=== PATIENT | male | born 1960 | race Caucasian/White ===

== ENCOUNTER 2018-11-04 03:42 | Inpatient (IN) | payer MEDICAID, OTHER ==
[~2018-11-04] VITALS: Ht 185.4 cm; Wt 81.5 kg
[2018-11-04 05:16] LABS: BASOPHILS % (AUTO) 0.9 % (0.0-2.0); EOSINOPHILS % (AUTO) 0.4 % (1.0-6.0); HEMOGLOBIN 16.3 g/dL (13.5-17.5); LYMPHOCYTES # (AUTO) 1.8 K/uL (1.0-4.8); LYMPHOCYTES % (AUTO) 13.4 % (22.0-44.0); MEAN CORPUSCULAR VOLUME 88 fL (80-100); MONOCYTES # (AUTO) 1.1 K/uL (0.1-1.0); MONOCYTES % (AUTO) 8.5 % (2.0-9.0); NEUTROPHILS # (AUTO) 10.3 K/uL (1.8-7.7); NEUTROPHILS % (AUTO) 76.8 % (40.0-70.0); PLATELET COUNT (AUTO) 361 K/uL (150-450); RED BLOOD CELL COUNT(AUTO) 5.44 MIL/uL (4.50-5.90); RED CELL DISTRIBUTION WIDTH 13.8 % (11.5-14.5)
[2018-11-04 05:26] LABS: AMPHET/METH SCREEN,URINE POSITIVE (NEGATIVE); BARBITURATE SCREEN, URINE NEGATIVE (NEGATIVE); BENZODIAZEPINES SCREEN,URINE NEGATIVE (NEGATIVE); CANNABINOID SCREEN,URINE NEGATIVE (NEGATIVE); COCAINE SCREEN,URINE NEGATIVE (NEGATIVE); METHADONE SCREEN, URINE NEGATIVE (NEGATIVE); OPIATE SCREEN,URINE NEGATIVE (NEGATIVE)
[2018-11-04 05:29] LABS: PHENCYCLIDINE SCREEN,URINE NEGATIVE (NEGATIVE)
[2018-11-04 05:36] LABS: ANION GAP 13 mmol/L (8-16); CALCIUM, TOTAL 9.4 mg/dL (8.8-10.5); CARBON DIOXIDE 24 mmol/L (22-29); CHLORIDE 103 mmol/L (98-107); CREATININE 1.29 mg/dL (0.60-1.30); GLOMERULAR FILTR. RATE CALC 57 mL/min (>60); GLUCOSE,RANDOM 153 mg/dL (70-110); POTASSIUM 3.8 mmol/L (3.5-5.1); SODIUM SERUM 140 mmol/L (136-145); UREA NITROGEN, BLOOD 32 mg/dL (7-18)
[2018-11-04 05:41] LABS: ALANINE AMINOTRANSFERASE 107 U/L (12-78); ALBUMIN 4.2 g/dL (3.4-5.0); ALKALINE PHOSPHATASE 106 U/L (46-116); ASPARTATE AMINOTRANSFERASE 185 U/L (15-37); BILIRUBIN,TOTAL 1.4 mg/dL (0.1-1.0); TOTAL PROTEIN, SERUM 8.5 g/dL (6.4-8.2)
[2018-11-04] MEDS ORDERED: LORazepam 2 MG/ML VIAL IM ONE (06:00)
[2018-11-04] MEDS ORDERED: HALOPERIDOL LACTATE 5 MG/ML VIAL IM ONE (06:00)
[2018-11-04] MEDS ORDERED: DiphenhydrAMINE HCL 50 MG/ML VIAL IM ONE (06:00)
[2018-11-04] MEDS ORDERED: ZOLPIDEM TARTRATE 10 MG TABLET PO PRN (13:45)
[2018-11-04 19:40] VITALS: BP 117/75
[2018-11-04] MEDS: LORazepam 2 MG TABLET PO PRN (20:35)
[2018-11-04] MEDS: RisperiDONE 1 MG TABLET PO SCH (20:35)
[2018-11-05 00:45] VITALS: BP 110/77
[2018-11-05] MEDS ORDERED: ALBUTEROL SULFATE HFA 90 MCG/PUFF 8 GM INHALER IH PRN (07:00)
[2018-11-05] MEDS ORDERED: ONDANSETRON HCL 4 MG TABLET PO PRN (07:00)
[2018-11-05] MEDS ORDERED: MAG HYDROX/AL HYDROX/SIMETH ES 30 ML SUSPENSION UDCUP PO PRN (07:00)
[2018-11-05] MEDS ORDERED: CloNIDine HCL 0.1 MG TABLET PO PRN (07:00)
[2018-11-05] MEDS ORDERED: IBUPROFEN 600 MG TABLET PO PRN (07:00)
[2018-11-05] MEDS ORDERED: BACITRACIN 28.4 GM OINTMENT TP PRN (07:00)
[2018-11-05] MEDS ORDERED: ACETAMINOPHEN 325 MG TABLET PO PRN (07:00)
[2018-11-05] MEDS ORDERED: BENZOCAINE/MENTHOL LOZENGE MM PRN (07:00)
[2018-11-05] MEDS ORDERED: PETROLATUM,WHITE 28 GM JELLY TP PRN (07:00)
[2018-11-05] MEDS ORDERED: MAGNESIUM HYDROXIDE SUSPENSION 30 ML UDCUP PO PRN (07:00)
[2018-11-05] MEDS ORDERED: LOPERAMIDE HCL 2 MG CAPSULE PO PRN (07:00)
[2018-11-05 08:36] VITALS: BP 108/73
[2018-11-05] MEDS: DOCUSATE SODIUM 100 MG CAPSULE PO SCH (09:10)
[2018-11-05] MEDS: LORazepam 2 MG TABLET PO PRN (09:10)
[2018-11-05] MEDS: OMEPRAZOLE 20 MG CAPSULE PO SCH (09:10)
[2018-11-05] MEDS: RisperiDONE 1 MG TABLET PO SCH ×2 (09:10→16:35)
[2018-11-05 16:00] VITALS: BP 108/67
[2018-11-06 01:25] VITALS: BP 117/80
[2018-11-06 08:10] VITALS: BP 106/65
[2018-11-06] MEDS: DOCUSATE SODIUM 100 MG CAPSULE PO SCH (08:45)
[2018-11-06] MEDS: OMEPRAZOLE 20 MG CAPSULE PO SCH (08:45)
[2018-11-06] MEDS: RisperiDONE 1 MG TABLET PO SCH ×2 (08:45→16:42)
[2018-11-06 16:00] VITALS: BP 111/72
[2018-11-06] MEDS: LORazepam 2 MG TABLET PO PRN (16:43)
[2018-11-06] MEDS: HALOPERIDOL 5 MG TABLET PO PRN (16:43)
[2018-11-07 06:05] VITALS: BP 113/75
[2018-11-07 08:04] VITALS: BP 119/75
[2018-11-07] MEDS: OMEPRAZOLE 20 MG CAPSULE PO SCH (08:38)
[2018-11-07] MEDS: HALOPERIDOL 5 MG TABLET PO PRN (08:38)
[2018-11-07] MEDS: DOCUSATE SODIUM 100 MG CAPSULE PO SCH (08:38)
[2018-11-07] MEDS: LORazepam 2 MG TABLET PO PRN (08:38)
[2018-11-07] MEDS: RisperiDONE 1 MG TABLET PO SCH (08:38)
[2018-11-07] MEDS ORDERED: RISP1 PO (11:39)
[2018-11-07] MEDS ORDERED: DSS100 PO (11:39)
[2018-11-07] MEDS ORDERED: OMEP20 PO (11:39)
== END 2018-11-07 14:30 | disposition home or self-care (01) | DRG 751 ==
LOC: EMS 03:42 → B3A 18:34
PROVIDERS: ADMIT Psychiatry & Neurology Psychiatry; ATTEND Psychiatry & Neurology Psychiatry
DX: F29 Unspecified psychosis not due to a substance or known physiological condition (principal); N17.9 Acute kidney failure, unspecified; R45.851 Suicidal ideations; F41.9 Anxiety disorder, unspecified; G47.00 Insomnia, unspecified; K21.9 Gastro-esophageal reflux disease without esophagitis; M19.90 Unspecified osteoarthritis, unspecified site; F10.10 Alcohol abuse, uncomplicated; F15.10 Other stimulant abuse, uncomplicated; F11.10 Opioid abuse, uncomplicated
CPT/HCPCS: 96372; G0480; J1200; J1630; J2060

== ENCOUNTER 2019-04-08 19:51 | Emergency (ER) | payer MEDICAID ==
[~2019-04-08 19:51] MED LIST: RISP1 PO
== END 2019-04-08 20:05 | disposition left against medical advice (07) ==
LOC: EMS 19:52
DX: R45.851 Suicidal ideations (principal); Z53.21 Procedure and treatment not carried out due to patient leaving prior to being seen by health care provider

== ENCOUNTER 2023-04-30 18:38 | Emergency (ER) | payer BC, OTHER ==
[~2023-04-30] VITALS: Ht 185.4 cm; Wt 80.5 kg
[2023-04-30 19:41] VITALS: TEMP 98
[2023-04-30 21:10] LABS: BASOPHILS % (AUTO) 0.4 % (0.0-2.0); EOSINOPHILS % (AUTO) 0 % (1.0-6.0); HEMATOCRIT 47.3 % (41-53); HEMOGLOBIN 15.6 g/dL (13.5-17.5); LYMPHOCYTES # (AUTO) 1.5 K/uL (1.0-4.8); MEAN CORPUSCULAR HEMOGLOBIN 30.6 pg (26.0-34.0); MEAN CORPUSCULAR VOLUME 93 fL (80-100); MONOCYTES # (AUTO) 1.3 K/uL (0.1-1.0); MONOCYTES % (AUTO) 6.2 % (2.0-9.0); NEUTROPHILS # (AUTO) 18.6 K/uL (1.8-7.7); PLATELET COUNT (AUTO) 327 K/uL (150-450); RED CELL DISTRIBUTION WIDTH 14.6 % (11.5-14.5); WHITE BLOOD COUNT (AUTO) 21.5 K/uL (4.5-11.0)
[2023-04-30 21:12] LABS: NEUTROPHILS % (AUTO) 86.4 % (40.0-70.0)
[2023-04-30 21:20] LABS: ANION GAP 12 mmol/L (8-16); CALCIUM, TOTAL 9.7 mg/dL (8.8-10.5); CARBON DIOXIDE 26 mmol/L (22-29); CHLORIDE 104 mmol/L (98-107); CREATININE 1.52 mg/dL (0.60-1.30); GLOMERULAR FILTR. RATE CALC 47 mL/min (>60); GLUCOSE,RANDOM 110 mg/dL (70-110); POTASSIUM 4.3 mmol/L (3.5-5.1); SODIUM SERUM 142 mmol/L (136-145); UREA NITROGEN, BLOOD 27 mg/dL (7-18)
[2023-04-30 21:26] LABS: ALCOHOL, BLOOD (SERUM) < 3 mg/dL (0-10)
[2023-04-30 21:34] LABS: ALANINE AMINOTRANSFERASE 65 U/L (12-78); ALBUMIN 4.3 g/dL (3.4-5.0); ALKALINE PHOSPHATASE 106 U/L (46-116); ASPARTATE AMINOTRANSFERASE 66 U/L (15-37); BILIRUBIN,TOTAL 1.9 mg/dL (0.1-1.0)
[2023-04-30 22:32] LABS: COVID AG,FIA SOURCE NASAL SWAB
[2023-04-30 22:41] LABS: TROPONIN I-HIGH SENSITIVITY 69 ng/L (<76)
[2023-04-30 22:57] LABS: SARS-COV2 (COVID) ANTIGEN,FIA Negative (Negative)
[2023-04-30 23:10] VITALS: BP 113/60; PULSE 109; RESP 16
== END 2023-04-30 23:35 | disposition home or self-care (01) ==
LOC: EMS 18:39
DX: F15.10 Other stimulant abuse, uncomplicated (principal)
CPT/HCPCS: 80053; 84484; 85025; 36415; 99284; 93005; 87426; G0480

== ENCOUNTER 2023-05-02 16:02 | Emergency (ER) | payer BC, OTHER ==
[~2023-05-02] VITALS: Ht 185.4 cm; Wt 80.5 kg
[2023-05-02 16:16] VITALS: TEMP 98.5
[2023-05-02] MEDS ORDERED: TraMADol HCL 50 MG TABLET PO ONE (17:00)
[2023-05-02 19:42] VITALS: BP 109/60; PULSE 90; RESP 18
== END 2023-05-02 19:52 | disposition home or self-care (01) ==
LOC: EMS 16:03
DX: S93.401A Sprain of unspecified ligament of right ankle, initial encounter (principal); F15.90 Other stimulant use, unspecified, uncomplicated; Z96.652 Presence of left artificial knee joint; Z88.6 Allergy status to analgesic agent; Z91.018 Allergy to other foods; W10.8XXA Fall (on) (from) other stairs and steps, initial encounter; Y93.89 Activity, other specified; Y92.89 Other specified places as the place of occurrence of the external cause; Y99.8 Other external cause status
CPT/HCPCS: 99284; 73610-TC; 73630-TC; Z7502; Z7610

== ENCOUNTER 2024-05-04 17:19 | Inpatient (IN) | payer BC, MEDICAID ==
[~2024-05-04] VITALS: Ht 185.4 cm; Wt 73.6 kg
[2024-05-04] MEDS ORDERED: DiphenhydrAMINE HCL 50 MG/ML VIAL ONE (19:28)
[2024-05-04] MEDS ORDERED: HALOPERIDOL LACTATE 5 MG/ML VIAL ONE (19:28)
[2024-05-04] MEDS ORDERED: LORazepam 2 MG/ML VIAL ONE (19:28)
[2024-05-04] MEDS: DiphenhydrAMINE HCL 50 MG/ML VIAL IM ONE (19:36)
[2024-05-04] MEDS: HALOPERIDOL LACTATE 5 MG/ML VIAL IM ONE (19:37)
[2024-05-04] MEDS: LORazepam 2 MG/ML VIAL IM ONE (19:37)
[2024-05-04 20:00] LABS: COVID AG,FIA SOURCE NASAL SWAB
[2024-05-04 20:19] LABS: SARS-COV2 (COVID) ANTIGEN,FIA Negative (Negative)
[2024-05-04 20:46] LABS: HEMATOCRIT 46.2 % (41-53); HEMOGLOBIN 15.4 g/dL (13.5-17.5); MEAN CORPUSCULAR HEMOGLOBIN 30.5 pg (26.0-34.0); MEAN CORPUSCULAR HGB CONC 33.3 G/dL (31.0-37.0); MEAN CORPUSCULAR VOLUME 92 fL (80-100); PLATELET COUNT (AUTO) 306 K/uL (150-450); RED BLOOD CELL COUNT(AUTO) 5.04 MIL/uL (4.50-5.90); RED CELL DISTRIBUTION WIDTH 14.8 % (11.5-14.5); WHITE BLOOD COUNT (AUTO) 17.4 K/uL (4.5-11.0)
[2024-05-04 20:59] LABS: ANION GAP 15 mmol/L (8-16); CALCIUM, TOTAL 9.4 mg/dL (8.8-10.5); CARBON DIOXIDE 21 mmol/L (22-29); CHLORIDE 103 mmol/L (98-107); GLOMERULAR FILTR. RATE CALC 34 mL/min (>60); GLUCOSE,RANDOM 116 mg/dL (70-110); POTASSIUM 3.8 mmol/L (3.5-5.1); SODIUM SERUM 139 mmol/L (136-145); UREA NITROGEN, BLOOD 44 mg/dL (7-18)
[2024-05-04 21:18] LABS: ALCOHOL, BLOOD (SERUM) < 3 mg/dL (0-10)
[2024-05-04 21:38] LABS: BAND NEUTROPHILS % (MANUAL) 4 % (0-5); LYMPHOCYTES % (MANUAL) 9 % (22-44); MONOCYTES % (MANUAL) 7 % (2-9); RBC MORPHOLOGY COMMENT NORMAL RBC MORPH; SEGMENTED NEUTROPHILS % 80 % (40-70); TOTAL CELLS COUNTED 100
[2024-05-04 21:49] LABS: PH,URINE DRUG SCREEN 5.5 (5.0-8.0)
[2024-05-04 21:51] LABS: ALCOHOL, URINE DRUG SCREEN NEGATIVE (NEGATIVE); AMPHET/METH SCREEN,URINE NEGATIVE (NEGATIVE); BARBITURATE SCREEN, URINE NEGATIVE (NEGATIVE); BENZODIAZEPINES SCREEN,URINE NEGATIVE (NEGATIVE); CANNABINOID SCREEN,URINE NEGATIVE (NEGATIVE); COCAINE SCREEN,URINE NEGATIVE (NEGATIVE); METHADONE SCREEN, URINE NEGATIVE (NEGATIVE); OPIATE SCREEN,URINE NEGATIVE (NEGATIVE); PHENCYCLIDINE SCREEN,URINE NEGATIVE (NEGATIVE)
[2024-05-04 23:29] VITALS: O2SAT 98
[2024-05-05] MEDS ORDERED: ZOLPIDEM TARTRATE 10 MG TABLET PO PRN (00:30)
[2024-05-05] MEDS ORDERED: HALOPERIDOL 5 MG TABLET PO PRN (00:30)
[2024-05-05 00:54] LABS: APPEARANCE,URINE TURBID (CLEAR); BILIRUBIN,URINE NEGATIVE (NEGATIVE); COLOR,URINE YELLOW (YELLOW); GLUCOSE, URINE (UA) NEGATIVE (NEGATIVE); LEUKOCYTE ESTERASE ,URINE NEGATIVE (NEGATIVE); NITRATE,URINE NEGATIVE (NEGATIVE); OCCULT BLOOD,URINE TRACE (NEGATIVE); PH,URINE 5.5 (5.0-8.0); PROTEIN,URINE 100-200,SEE CONFIRM mg/dL (NEGATIVE); SPECIFIC GRAVITIY, URINE 1.024 (1.003-1.030); UROBILINOGEN,URINE <=1.0 mg/dL (<=1.0)
[2024-05-05 01:25] LABS: AMORPHOUS SEDIMENT,UR Many /LPF (None Seen); BACTERIA,URINE None Seen /HPF (None Seen); RBC,URINE 0-2 /HPF (0-2); SQUAMOUS EPITHELIAL CELL,UR Few /LPF (None Seen); SULFOSALICYLIC ACID,URINE 2+ (Negative); WBC,URINE None Seen /HPF (0-5)
[2024-05-05 05:42] VITALS: BP 112/66; PULSE 112; RESP 18; TEMP 97.6; O2SAT 97
[2024-05-05] MEDS ORDERED: ACETAMINOPHEN 325 MG TABLET PO PRN (07:15)
[2024-05-05] MEDS ORDERED: MAGNESIUM HYDROXIDE SUSPENSION 30 ML UDCUP PO PRN (07:15)
[2024-05-05] MEDS ORDERED: ONDANSETRON 4 MG TABLET PO PRN (07:15)
[2024-05-05] MEDS ORDERED: NICOTINE 14 MG/24 HOUR PATCH TD PRN (07:15)
[2024-05-05] MEDS ORDERED: MAG HYDROX/ALUMINUM HYD/SIMETH ES 30 ML SUSPENSION UDCUP PO PRN (07:15)
[2024-05-05] MEDS ORDERED: CloNIDine HCL 0.1 MG TABLET PO PRN (07:15)
[2024-05-05] MEDS ORDERED: ALBUTEROL SULFATE HFA 90 MCG/PUFF 8 GM INHALER IH PRN (07:15)
[2024-05-05] MEDS ORDERED: GuaiFENesin/D-METHORPHAN [SUGAR-FREE] 200-20MG/10 ML SYRUP UDCUP PO PRN (07:15)
[2024-05-05] MEDS ORDERED: PETROLATUM,WHITE 28 GM JELLY TP PRN (07:15)
[2024-05-05 08:07] VITALS: BP 96/70; PULSE 92; RESP 16; TEMP 97.6; O2SAT 100
[2024-05-05] MEDS: RisperiDONE 1 MG TABLET PO SCH (11:45)
[2024-05-05 13:24] VITALS: BP 106/68; PULSE 84; RESP 16; TEMP 97.5; O2SAT 100
[2024-05-05 17:25] VITALS: BP 109/60; PULSE 76; RESP 18; TEMP 97.5; O2SAT 98
[2024-05-05 20:55] VITALS: BP 108/69; PULSE 78; RESP 17; TEMP 97.4; O2SAT 99
[2024-05-06 08:10] VITALS: BP 137/72; PULSE 80; RESP 16; TEMP 98.1; O2SAT 100
[2024-05-06 10:09] LABS: HEMOGLOBIN A1C 5.9 % (3.8-5.6)
[2024-05-06 10:24] LABS: ANION GAP 8 mmol/L (8-16); CALCIUM, TOTAL 9.5 mg/dL (8.8-10.5); CARBON DIOXIDE 29 mmol/L (22-29); CHLORIDE 101 mmol/L (98-107); CHOLESTEROL 158 mg/dL (131-200); CREATININE 0.95 mg/dL (0.60-1.30); GLOMERULAR FILTR. RATE CALC > 60 mL/min (>60); GLUCOSE,RANDOM 96 mg/dL (70-110); HDL CHOLESTEROL 81 mg/dL (40-60); LDL CHOL (CALC.) 55 mg/dL (0-130); POTASSIUM 4.4 mmol/L (3.5-5.1); SODIUM SERUM 138 mmol/L (136-145); THYROID STIMULATING HORMONE 0.69 uIU/mL (0.36-3.74); TRIGLYCERIDES 108 mg/dL (15-150); UREA NITROGEN, BLOOD 34 mg/dL (7-18)
[2024-05-06 10:36] LABS: BASOPHILS % (AUTO) 0.8 % (0.0-2.0); EOSINOPHILS % (AUTO) 2.4 % (1.0-6.0); HEMATOCRIT 45.1 % (41-53); HEMOGLOBIN 14.9 g/dL (13.5-17.5); LYMPHOCYTES # (AUTO) 1.9 K/uL (1.0-4.8); LYMPHOCYTES % (AUTO) 23.4 % (22.0-44.0); MEAN CORPUSCULAR HEMOGLOBIN 30.4 pg (26.0-34.0); MEAN CORPUSCULAR VOLUME 92 fL (80-100); MONOCYTES # (AUTO) 0.8 K/uL (0.1-1.0); MONOCYTES % (AUTO) 9.6 % (2.0-9.0); NEUTROPHILS # (AUTO) 5.3 K/uL (1.8-7.7); NEUTROPHILS % (AUTO) 63.8 % (40.0-70.0); PLATELET COUNT (AUTO) 259 K/uL (150-450); RED CELL DISTRIBUTION WIDTH 14.3 % (11.5-14.5); WHITE BLOOD COUNT (AUTO) 8.3 K/uL (4.5-11.0)
[2024-05-06 17:55] VITALS: BP 102/62; PULSE 97; RESP 18; TEMP 98; O2SAT 98
[2024-05-06] MEDS: LORazepam 2 MG TABLET PO PRN (18:51)
[2024-05-06 20:35] VITALS: BP 112/70; PULSE 92; RESP 18; TEMP 97.5; O2SAT 97
[2024-05-07 08:12] LABS: BASOPHILS % (AUTO) 0.8 % (0.0-2.0); EOSINOPHILS % (AUTO) 2.8 % (1.0-6.0); HEMATOCRIT 39.5 % (41-53); HEMOGLOBIN 13.3 g/dL (13.5-17.5); LYMPHOCYTES # (AUTO) 1.6 K/uL (1.0-4.8); LYMPHOCYTES % (AUTO) 27.6 % (22.0-44.0); MEAN CORPUSCULAR HEMOGLOBIN 30.8 pg (26.0-34.0); MEAN CORPUSCULAR HGB CONC 33.6 G/dL (31.0-37.0); MEAN CORPUSCULAR VOLUME 92 fL (80-100); MONOCYTES # (AUTO) 0.7 K/uL (0.1-1.0); MONOCYTES % (AUTO) 11.3 % (2.0-9.0); NEUTROPHILS # (AUTO) 3.4 K/uL (1.8-7.7); NEUTROPHILS % (AUTO) 57.5 % (40.0-70.0); PLATELET COUNT (AUTO) 267 K/uL (150-450); RED CELL DISTRIBUTION WIDTH 14.2 % (11.5-14.5); WHITE BLOOD COUNT (AUTO) 5.9 K/uL (4.5-11.0)
[2024-05-07 08:17] LABS: ANION GAP 3 mmol/L (8-16); CALCIUM, TOTAL 8.8 mg/dL (8.8-10.5); CARBON DIOXIDE 31 mmol/L (22-29); CHLORIDE 103 mmol/L (98-107); CREATININE 0.84 mg/dL (0.60-1.30); GLOMERULAR FILTR. RATE CALC > 60 mL/min (>60); GLUCOSE,RANDOM 104 mg/dL (70-110); POTASSIUM 4.4 mmol/L (3.5-5.1); SODIUM SERUM 137 mmol/L (136-145); UREA NITROGEN, BLOOD 22 mg/dL (7-18)
[2024-05-07 09:24] VITALS: BP 104/75; PULSE 99; RESP 17; TEMP 97.8; O2SAT 100
[2024-05-07] MEDS ORDERED: RISP-31 PO (09:47)
[2024-05-08 02:06] LABS: HEPATITIS C AB (EIA) Reactive (Non Reactive)
== END 2024-05-07 11:39 | disposition home or self-care (01) | DRG 885 ==
LOC: EMS 17:19 → B3A 05-05 03:06
PROVIDERS: ADMIT Psychiatry & Neurology Psychiatry; ATTEND Psychiatry & Neurology Psychiatry
PROC: GZHZZZZ Group Psychotherapy (ICD-10-PCS; principal; 2024-05-05)
PROC: GZ51ZZZ Individual Psychotherapy, Behavioral (ICD-10-PCS; 2024-05-05)
DX: F20.0 Paranoid schizophrenia (principal); R45.851 Suicidal ideations; I10 Essential (primary) hypertension; Z96.652 Presence of left artificial knee joint; K21.9 Gastro-esophageal reflux disease without esophagitis; F41.9 Anxiety disorder, unspecified; Z20.822 Contact with and (suspected) exposure to COVID-19; D72.829 Elevated white blood cell count, unspecified; F10.10 Alcohol abuse, uncomplicated; Y90.9 Presence of alcohol in blood, level not specified; F15.10 Other stimulant abuse, uncomplicated; Z91.014 Allergy to mammalian meats; Z78.1 Physical restraint status; Z79.899 Other long term (current) drug therapy; Z88.6 Allergy status to analgesic agent
CPT/HCPCS: 80048; 80061; 80307; 81001; 81002; 83036; 84443; 85025; 86803; 87340; G0480; J1200; J1630; J2060

== ENCOUNTER 2024-10-28 21:15 | Inpatient (IN) | payer BC, MEDICAID, OTHER ==
[~2024-10-28] VITALS: Ht 185.4 cm; Wt 84.1 kg
[~2024-10-28 21:15] MED LIST changes: +RISP-31 PO; -RISP1 PO
[2024-10-28 22:28] LABS: BASOPHILS % (AUTO) 0.4 % (0.0-2.0); EOSINOPHILS % (AUTO) 0 % (1.0-6.0); HEMATOCRIT 45.3 % (41-53); HEMOGLOBIN 15.2 g/dL (13.5-17.5); LYMPHOCYTES # (AUTO) 1.4 K/uL (1.0-4.8); LYMPHOCYTES % (AUTO) 8.6 % (22.0-44.0); MEAN CORPUSCULAR HEMOGLOBIN 29.8 pg (26.0-34.0); MEAN CORPUSCULAR HGB CONC 33.5 G/dL (31.0-37.0); MEAN CORPUSCULAR VOLUME 89 fL (80-100); MONOCYTES # (AUTO) 1.1 K/uL (0.1-1.0); MONOCYTES % (AUTO) 6.3 % (2.0-9.0); NEUTROPHILS # (AUTO) 14.2 K/uL (1.8-7.7); NEUTROPHILS % (AUTO) 84.7 % (40.0-70.0); PLATELET COUNT (AUTO) 358 K/uL (150-450); RED BLOOD CELL COUNT(AUTO) 5.09 MIL/uL (4.50-5.90); RED CELL DISTRIBUTION WIDTH 14.3 % (11.5-14.5); WHITE BLOOD COUNT (AUTO) 16.7 K/uL (4.5-11.0)
[2024-10-28 22:39] LABS: CALCIUM, TOTAL 10.2 mg/dL (8.8-10.5); CREATININE 1.69 mg/dL (0.60-1.30); POTASSIUM 3.7 mmol/L (3.5-5.1)
[2024-10-28 22:54] LABS: COVID AG,FIA SOURCE NASAL SWAB
[2024-10-28 23:12] LABS: SARS-COV2 (COVID) ANTIGEN,FIA Negative (Negative)
[2024-10-29] MEDS: LORazepam 1 MG TABLET PO ONE (00:53)
[2024-10-29] MEDS: LORazepam 2 MG/ML VIAL IM ONE (01:51)
[2024-10-29] MEDS: DiphenhydrAMINE HCL 50 MG/ML VIAL IM ONE (01:51)
[2024-10-29] MEDS: HALOPERIDOL LACTATE 5 MG/ML VIAL IM ONE (01:51)
[2024-10-29] MEDS: SODIUM CHLORIDE 0.9% 1,000 ML IV ONE (02:40)
[2024-10-29 09:22] LABS: APPEARANCE,URINE CLEAR (CLEAR); BILIRUBIN,URINE NEGATIVE (NEGATIVE); COLOR,URINE YELLOW (YELLOW); GLUCOSE, URINE (UA) NEGATIVE (NEGATIVE); KETONES,URINE TRACE mg/dL (NEGATIVE); LEUKOCYTE ESTERASE ,URINE NEGATIVE (NEGATIVE); NITRATE,URINE NEGATIVE (NEGATIVE); OCCULT BLOOD,URINE TRACE (NEGATIVE); PH,URINE 5.5 (5.0-8.0); PH,URINE DRUG SCREEN 5.5 (5.0-8.0); PROTEIN,URINE 30-70 mg/dL (NEGATIVE); SPECIFIC GRAVITIY, URINE 1.025 (1.003-1.030); UROBILINOGEN,URINE <=1.0 mg/dL (<=1.0)
[2024-10-29 09:28] LABS: ALCOHOL, URINE DRUG SCREEN NEGATIVE (NEGATIVE); AMPHET/METH SCREEN,URINE POSITIVE (NEGATIVE); BARBITURATE SCREEN, URINE NEGATIVE (NEGATIVE); BENZODIAZEPINES SCREEN,URINE POSITIVE (NEGATIVE); CANNABINOID SCREEN,URINE NEGATIVE (NEGATIVE); COCAINE SCREEN,URINE NEGATIVE (NEGATIVE); METHADONE SCREEN, URINE NEGATIVE (NEGATIVE); OPIATE SCREEN,URINE NEGATIVE (NEGATIVE); PHENCYCLIDINE SCREEN,URINE NEGATIVE (NEGATIVE)
[2024-10-29 09:33] LABS: BACTERIA,URINE Few /HPF (None Seen); RBC,URINE 0-2 /HPF (0-2); SQUAMOUS EPITHELIAL CELL,UR Few /LPF (None Seen); WBC,URINE None Seen /HPF (0-5)
[2024-10-29] MEDS ORDERED: ZOLPIDEM TARTRATE 10 MG TABLET PO PRN (11:45)
[2024-10-29] MEDS ORDERED: METO-416 PO (11:50)
[2024-10-29] MEDS ORDERED: ATOR-2 PO (11:50)
[2024-10-29] MEDS ORDERED: CLOP75TA32 PO (11:50)
[2024-10-29] MEDS ORDERED: PANT40TA54 PO (11:50)
[2024-10-29 14:00] VITALS: O2SAT 98
[2024-10-29 17:08] VITALS: BP 106/61; PULSE 89; RESP 17; TEMP 98.3; O2SAT 99
[2024-10-29] MEDS ORDERED: ALBUTEROL SULFATE HFA 90 MCG/PUFF 8 GM INHALER IH PRN (18:15)
[2024-10-29] MEDS ORDERED: MAG HYDROX/ALUMINUM HYD/SIMETH ES 30 ML SUSPENSION UDCUP PO PRN (18:15)
[2024-10-29] MEDS ORDERED: PETROLATUM,WHITE 28 GM JELLY TP PRN (18:15)
[2024-10-29] MEDS ORDERED: BENZOCAINE/MENTHOL [CEPACOL] LOZENGE PO PRN (18:15)
[2024-10-29] MEDS ORDERED: BACITRACIN 28 GM OINTMENT TP PRN (18:15)
[2024-10-29] MEDS ORDERED: CloNIDine HCL 0.1 MG TABLET PO PRN (18:15)
[2024-10-29] MEDS ORDERED: MAGNESIUM HYDROXIDE SUSPENSION 30 ML UDCUP PO PRN (18:15)
[2024-10-29] MEDS ORDERED: ONDANSETRON 4 MG TABLET PO PRN (18:15)
[2024-10-29] MEDS ORDERED: LOPERAMIDE HCL 2 MG CAPSULE PO PRN (18:15)
[2024-10-29] MEDS ORDERED: ACETAMINOPHEN 325 MG TABLET PO PRN (18:15)
[2024-10-29] MEDS ORDERED: DOCUSATE SODIUM 100 MG CAPSULE PO PRN (18:15)
[2024-10-30] MEDS: METOPROLOL SUCCINATE 50 MG ER TABLET PO SCH (08:38)
[2024-10-30] MEDS: ATORVASTATIN CALCIUM 40 MG TABLET PO SCH (08:38)
[2024-10-30] MEDS: CLOPIDOGREL BISULFATE 75 MG TABLET PO SCH (08:38)
[2024-10-30] MEDS: PANTOPRAZOLE SODIUM 40 MG DR TABLET PO SCH (08:38)
[2024-10-30 09:00] VITALS: BP 105/72; PULSE 77; RESP 18; TEMP 97; O2SAT 99
[2024-10-30] MEDS: RisperiDONE 1 MG TABLET PO SCH (11:21)
[2024-10-30 21:20] VITALS: BP 86/62; PULSE 98; RESP 18; TEMP 97.3; O2SAT 65
[2024-10-31 11:07] VITALS: BP 98/52; PULSE 72; RESP 14; TEMP 97.8; O2SAT 98
[2024-10-31] MEDS ORDERED: CLOP75TA83 PO (12:27)
[2024-10-31] MEDS ORDERED: PANT-31 PO (12:27)
[2024-10-31] MEDS ORDERED: METO-391 PO (12:27)
[2024-10-31] MEDS ORDERED: ATOR40TA71 PO (12:27)
== END 2024-10-31 18:35 | disposition home or self-care (01) | DRG 750 ==
LOC: EMS 21:15 → B3A 10-29 14:12
PROVIDERS: ADMIT Psychiatry & Neurology Psychiatry; ATTEND Psychiatry & Neurology Psychiatry
PROC: GZ58ZZZ Individual Psychotherapy, Cognitive-Behavioral (ICD-10-PCS; principal; 2024-10-30)
PROC: GZ56ZZZ Individual Psychotherapy, Supportive (ICD-10-PCS; 2024-10-30)
DX: F20.0 Paranoid schizophrenia (principal); F10.90 Alcohol use, unspecified, uncomplicated; F15.20 Other stimulant dependence, uncomplicated; I10 Essential (primary) hypertension; Y90.0 Blood alcohol level of less than 20 mg/100 ml; Z20.822 Contact with and (suspected) exposure to COVID-19; G47.00 Insomnia, unspecified; K59.00 Constipation, unspecified; Z96.652 Presence of left artificial knee joint; F41.9 Anxiety disorder, unspecified; K21.9 Gastro-esophageal reflux disease without esophagitis; Z79.899 Other long term (current) drug therapy; Z88.6 Allergy status to analgesic agent
CPT/HCPCS: 80048; 80307; 81001; 85025; 96372; 99285; G0480; J1200; J1630; J2060